=== PATIENT | male | born 1965 | race Caucasian/White ===

== ENCOUNTER 2018-04-12 16:12 | Inpatient (IN) | payer MEDICARE, OTHER ==
[~2018-04-12] VITALS: Ht 167.6 cm; Wt 64.0 kg
[~2018-04-12 16:12] MED LIST: AMLO10TA4 PO; ATOR20TA PO; CLON0.1T14 PO; HYDR-507 PO; HYDR50TA61 PO; LISI1TAB13 PO; QUET25TA3
[2018-04-12] MEDS ORDERED: [UNRECOGNIZED DRUG - REMARK] (16:35)
[2018-04-12] MEDS ORDERED: LORA-258 PO (16:35)
[2018-04-12] MEDS ORDERED: GENTAMICIN SULFATE INJ 80 MG in IV DEXTROSE 5% 100 ML IV ONE (17:15)
[2018-04-12] MEDS ORDERED: DEXAMETHASONE SOD PHOSPHATE 4 MG INJ IV ONE (17:15)
[2018-04-12] MEDS ORDERED: VANCOMYCIN IV 1,000 MG in IV DEXTROSE 5% 250 ML IV ONE (17:15)
[2018-04-12] MEDS ORDERED: IV NORMAL SALINE 1000 ML BAG IV ONE (17:15)
[2018-04-12] MEDS ORDERED: CLINDAMYCIN PHOSPHATE IV 600 MG in IV DEXTROSE 5% 100 ML IV ONE (17:15)
[2018-04-12] MEDS ORDERED: CLINDAMYCIN PHOSPHATE 600 MG/4 ML VIAL ONE (17:20)
[2018-04-12] MEDS ORDERED: GENTAMICIN SULFATE 80 MG/2 ML VIAL ONE (17:20)
[2018-04-12] MEDS ORDERED: DEXAMETHASONE SOD PHOSPHATE 10 MG INJ ONE (17:20)
[2018-04-12] MEDS ORDERED: VANCOMYCIN IV 200 ML ONE (17:20)
[2018-04-12 17:41] LABS: CREATININE 0.7 mg/dL (0.6-1.3)
--- NOTE | 2018-04-12 17:54 | NUR ---
Call placed to [facility], Dr. Mathews has been paged.
[2018-04-12 17:55] LABS: BILIRUBIN,DIRECT 0.1 mg/dL (0.0-0.2); BILIRUBIN,TOTAL 0.5 mg/dL (0.2-1.0); TOTAL PROTEIN, SERUM 7.6 g/dL (6.4-8.2)
[2018-04-12 17:57] LABS: BASOPHILS % (AUTO) 0.4 % (0.0-2.0); EOSINOPHILS % (AUTO) 0.3 % (0.0-7.0); HEMATOCRIT 47.4 % (36.7-47.1); HEMOGLOBIN 16.8 g/dL (12.5-16.3); LYMPHOCYTES # (AUTO) 1.1 K/uL (20.0-40.0); LYMPHOCYTES % (AUTO) 28.7 % (20.5-51.5); MEAN CORPUSCULAR HEMOGLOBIN 30.4 uug (23.8-33.4); MEAN CORPUSCULAR HGB CONC 35 g/dL (32.5-36.3); MEAN CORPUSCULAR VOLUME 86.1 fL (73.0-96.2); MONOCYTES # (AUTO) 0.5 K/uL (2.0-10.0); MONOCYTES % (AUTO) 12.2 % (0.0-11.0); NEUTROPHILS # (AUTO) 2.3 K/uL (1.8-8.9); NEUTROPHILS % (AUTO) 58.4 % (38.5-71.5); RED BLOOD CELL COUNT(AUTO) 5.51 MIL/uL (4.06-5.63)
[2018-04-12 17:58] LABS: PLATELET COUNT (AUTO) 142 K/uL (152-348)
[2018-04-12] MEDS ORDERED: NORMAL SALINE FLUSH 10 ML DISP.SYRIN ONE (18:16)
[2018-04-12] MEDS ORDERED: IV NORMAL SALINE 100 ML ONE (18:16)
[2018-04-12] MEDS ORDERED: IOHEXOL 300MG/ML 100 ML INFUS..BTL ONE (18:16)
[2018-04-12] MEDS ORDERED: SWABABLE VALVE TRANSFER SET EA MC ONE (18:16)
[2018-04-12] MEDS ORDERED: ONDANSETRON 4 MG/2 ML VIAL IV PRN (19:00)
[2018-04-12] MEDS ORDERED: Z GUARD REMEDY PASTE 57 GM TUBE TOP PRN (19:00)
[2018-04-12] MEDS ORDERED: MAGNESIUM HYDROXIDE 30 ML LIQUID UDC PO PRN (19:00)
[2018-04-12] MEDS ORDERED: MORPHINE SULFATE 4 MG/1 ML DISP.SYRIN IV PRN (19:00)
[2018-04-12] MEDS ORDERED: ACETAMINOPHEN 325 MG TABLET PO PRN (19:00)
--- NOTE | 2018-04-12 19:07 | NUR ---
REPORT GIVE TO JAHAIRA BOUCHER.
--- NOTE | 2018-04-12 19:13 | NUR ---
REPORT TAKEN FROM KLARISSA. ASSUMING PT CARE AT THIS TIME.
[2018-04-12 19:57] LABS: *BILIRUBIN,URIN NEGATIVE (NEGATIVE); *BLOOD, URINE NEGATIVE (NEGATIVE); *CLARITY,URINE CLEAR (CLEAR); *COLOR,URINE YELLOW (YELLOW); *KETONES,URINE NEGATIVE (NEGATIVE); *PROTEIN,URINE NEGATIVE (NEGATIVE); LEUKOCYTE ESTERASE ,URINE NEGATIVE (NEGATIVE); NITRITE, URINE NEGATIVE (NEGATIVE); PH,URINE 8.5 (5.0-8.0); UGLUCOSE NEGATIVE (NEGATIVE)
[2018-04-12 20:08] LABS: MUCUS,URINE FEW /LPF (0-FEW); WBC,URINE 0-3 /HPF (0-3)
--- NOTE | 2018-04-12 20:11 | NUR ---
PT AMBULATED TO AND FROM BATHROOM W/ STEADY GAIT. NO DISTRESS NOTED.
--- NOTE | 2018-04-12 20:39 | NUR ---
PT RESTING IN BED W/ EYES CLOSED. NO ACUTE DISTRESS NOTED. PENDING CT RESULTS.
[2018-04-12 23:00] VITALS: BP 120/88
--- NOTE | 2018-04-12 23:22 | NUR ---
REPORT GIVEN TO CITLALY BELTRAN.
--- NOTE | 2018-04-12 23:40 | NUR ---
RECEIVED PT FROM ER VIA WHEELCHAIR. PT IS AWAKE, ALERT, ORIENTEDX4. DX: CELLULITIS OF RIGHT JAW. ADMISSION PROCESS AND CARE PLAN INITIATED.NEW ADMISSION. BELONGING LIST DONE.MCC ASSESSMENT DONE. CALL LIGHT WITH REACH. BED ALARM ON AND IN LOW POSITION. SIDE [id number]. SAFETY AND COMFORT PROVIDED. WILL CONTINUE TO MONITOR.
--- NOTE | 2018-04-13 | NUR ---
Pt. admitted to [facility], under care of Dr. Mathews Belongs List completed
[2018-04-13] MEDS: IV NS 1000 ML 1,000 ML IV PRN ×2 (01:15→18:45)
--- NOTE | 2018-04-13 06:16 | NUR ---
Pt slept throughout the shift. Pt shows no signs of distress. Pt stable.Iv intact and patent.Safety and comfort provided. All needs are met. Will endorse to dayshift nurse.
[2018-04-13 06:29] VITALS: BP 122/80
[2018-04-13 06:40] LABS: CREATININE 0.7 mg/dL (0.6-1.3); MAGNESIUM 2.1 mg/dL (1.8-2.4); PHOSPHOROUS 3.4 mg/dL (2.5-4.9); POTASSIUM 4.5 mmol/L (3.5-5.1)
[2018-04-13] MEDS: HYDROCODONE/APAP 5-325MG TABLET PO PRN ×3 (07:05→20:07)
[2018-04-13 07:08] LABS: BASOPHILS % (AUTO) 0.3 % (0.0-2.0); HEMATOCRIT 48.5 % (36.7-47.1); HEMOGLOBIN 17.1 g/dL (12.5-16.3); LYMPHOCYTES # (AUTO) 1.1 K/uL (20.0-40.0); LYMPHOCYTES % (AUTO) 38.5 % (20.5-51.5); MEAN CORPUSCULAR HEMOGLOBIN 30.2 uug (23.8-33.4); MEAN CORPUSCULAR HGB CONC 35 g/dL (32.5-36.3); MEAN CORPUSCULAR VOLUME 85.9 fL (73.0-96.2); MONOCYTES # (AUTO) 0.2 K/uL (2.0-10.0); MONOCYTES % (AUTO) 5.8 % (0.0-11.0); NEUTROPHILS # (AUTO) 1.6 K/uL (1.8-8.9); NEUTROPHILS % (AUTO) 55.4 % (38.5-71.5); PLATELET COUNT (AUTO) 167 K/uL (152-348); RED BLOOD CELL COUNT(AUTO) 5.65 MIL/uL (4.06-5.63)
[2018-04-13 07:14] LABS: WHITE BLOOD COUNT (AUTO) 2.9 K/uL (3.6-10.2)
--- NOTE | 2018-04-13 07:30 | NUR ---
Received patient resting in bed, in no distress. IVF running, no infiltration noted. Patient's right mandibular/lower jaw/upper neck swelling noted. Sporadic rashes on upper body noted. Patient no c/o of itchy/pain/burning sensation, no SOB, stated no known allergies. Safety measures in place. Will continue to monitor.
[2018-04-13] MEDS: ENOXAPARIN SODIUM 40 MG/0.4 ML DISP.SYRIN SQ SCH (08:15)
[2018-04-13 08:45] LABS: BAND % (MANUAL) 7 % (0-10); LYMPHOCYTES % (MANUAL) 33 % (20-40); MONOCYTES % (MANUAL) 4 % (2-10); NEUTROPHILS % (MANUAL) 54 % (42-75)
[2018-04-13 08:48] LABS: REACTIVE LYMPHOCYTES 2 % (0-0)
--- NOTE | 2018-04-13 10:00 | NUR ---
Patient requested to see a psychiatrist. notified.
[2018-04-13] MEDS: VANCOMYCIN IV 1 G in PREMIXED 0 EACH IV SCH ×2 (10:59→20:06)
[2018-04-13 11:43] VITALS: BP 124/90
--- NOTE | 2018-04-13 14:50 | NUR ---
Clinical pharmacy note-Vancomycin dosing per pharmacy Subjective: To start Vancomycin dosing on this patient for suspected infection(head and neck abscess- ER note) Objective: BUN 7 Scr 0.7 WBC 2.9 Temp 98.5 Assessment/Plan: Patient had Vancomycin 1 gram in er last night at 1845. Will continue Vancomycin 1 gram IV every 10 hrs(first dose today at 11) and draw trough by 4th dose(not ordered yet) for expected trough around 16. Will monitor daily.
[2018-04-13 15:48] VITALS: BP 119/79
[2018-04-13] MEDS: LORAZEPAM 0.5 MG TABLET PO PRN (18:21)
--- NOTE | 2018-04-13 18:30 | NUR ---
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 Patient uses foul language (not directly to anyone), resist, gets very anxious, nervous and jerks his hands and legs during IV insertion and SQ med. Patient education/relaxation provided. Will continue to monitor.
--- NOTE | 2018-04-13 19:05 | NUR ---
RECEIVED PT AWAKE, ALERT, ORIENTEDX4. PT SHOWS NO SIGNS OF DISTRESS. PT IV INTACT AND PATENT. OBSERVED THAT PT HAS RASHES ALL OVER THE UPPER BODY WHICH IS NOT PRESENT WHEN I ADMITTED HIM.IT WAS ALSO ENDORSE BY DAYSHIFT NURSE THAT PT HAS RASHES. CALL LIGHT WITHIN REACH. BED ALARM ON AND IN LOW POSITION, SIDE RAILSX2. WILL CONTINUE TO MONITOR.
[2018-04-13 20:37] VITALS: BP 123/83
[2018-04-14] MEDS: HYDROCODONE/APAP 5-325MG TABLET PO PRN ×3 (04:10→23:31)
[2018-04-14] MEDS: LORAZEPAM 0.5 MG TABLET PO PRN ×3 (05:10→23:31)
[2018-04-14 05:24] VITALS: BP 127/88
[2018-04-14] MEDS: VANCOMYCIN IV 1 G in PREMIXED 0 EACH IV SCH ×3 (06:21→23:24)
--- NOTE | 2018-04-14 06:31 | NUR ---
PT SLEPT THROUGHOUT THE SHIFT. PT SHOWS NO SIGNS OF DISTRESS. IV INTACT AND PATENT. PRESCRIBED MEDICATION GIVEN AND PT TOLERATED IT WELL. PAIN MEDICATION GIVEN.CALL LIGHT WITHIN REACH , BED ALARM ON, SIDE RAILS X2UP AND IN LOW POSITION.ALL NEEDS ARE MET. SAFETY AND COMFORT PROVIDED. WILL ENDORSE TO DAYSHIFT NURSE.
--- NOTE | 2018-04-14 08:51 | NUR ---
Patient requested 2nd time to see a psychiatrist. MD available on the unit and was notified.
[2018-04-14] MEDS: ENOXAPARIN SODIUM 40 MG/0.4 ML DISP.SYRIN SQ SCH (09:35)
--- NOTE | 2018-04-14 09:45 | NUR ---
Sporadic rash on patient's upper body still visible, MD aware. Patient stated "better than yesterday". Patient no c/o of SOB. Will continue to monitor.
--- NOTE | 2018-04-14 11:00 | NUR ---
Clinical pharmacy note-Vancomycin dosing per pharmacy Subjective: To continue Vancomycin dosing on this patient for suspected infection(head and neck abscess- ER note) Objective: BUN 7 (04/13) Scr 0.7 (04/13) WBC 2.9 (04/13) Temp 97.4 Assessment/Plan: Will continue Vancomycin 1 gram IV every 10 hrs for now. Plan draw trough by 4th dose(ordered for today at 1630). Pharmacy shall review the level when available & adjust the dose if needed. Will monitor daily. Addendum: 04/14/18 at 1710 by JAMMIE HUGHES ADM VANCO TR LEVEL 7.9 WILL CHANGE VANCO DOSE TO VANCO 1 GM IVPB Q7H FOR PREDICATED VANCO TROUGH LEVEL OF 15.7 MCG/ML AT STEADY STATE. 1ST DOSE DUE TODAY AT 1700 PLAN TO RE-CHECK VANCO TROUGH LEVEL BEFORE 4TH DOSE (ORDERED ON 04/15 AT 1330). PHARMACY WILL REVIEW THE LEVEL & ADJUST THE DOSE IF NEEDED
[2018-04-14 11:19] VITALS: BP 116/84
[2018-04-14] MEDS: IV NS 1000 ML 1,000 ML IV PRN (11:25)
--- NOTE | 2018-04-14 11:34 | NUR ---
Patient still c/o of headache, c/o of nausea. PRN med administered as ordered. Will continue to assess and monitor.
--- NOTE | 2018-04-14 13:30 | NUR ---
Patient asleep, easily arousable. Medication for nausea and headache effective. Will continue to monitor.
[2018-04-14 15:33] VITALS: BP 112/84
[2018-04-14 16:50] VITALS: BP 111/73
--- NOTE | 2018-04-14 16:55 | NUR ---
Patient woke up c/o of headache and body ache, agitated, restless, stating "I feel hot". VS stable BP 111/73 HR 84 Temp 97.7, no SOB. Pain management as ordered. Will continue to monitor.
--- NOTE | 2018-04-14 17:55 | NUR ---
Patient slept intermittently, in no distress, no SOB, no c/o of chest pain, VS stable, afebrile. Right lower jaw/upper neck area with swelling/redness slight improvement noted compared with yesterday's assessment. Patient c/o of headache and body ache, pain management as ordered. IVF running, no infiltration noted. Antibiotic administered as ordered, no s/s of adverse reaction noted. Safety measures in place. Will continue to monitor.
--- NOTE | 2018-04-14 19:25 | NUR ---
PT RECEIVED IN BED, ASLEEP. WAKES TO NAME. A/OX3. ABLE TO MAKE NEEDS KNOWN. V/S STABLE. IN NO ACUTE DISTRESS. PT C/O OF RIGHT NECK PAIN 07/05, COMFORT MEASURES IMPLEMENTED. HEAD REPOSITIONED, FAN PROVIDED, AND ICE PACK APPLIED. REFUSES PAIN MEDICATION AT THIS TIME. IVF INFUSING. ON RA, TOLERATING WELL. AFEBRILE. SAFETY MEASURES IMPLEMENTED. CALL LIGHT WITHIN REACH.
[2018-04-14 20:05] VITALS: BP 132/96
--- NOTE | 2018-04-14 23:35 | NUR ---
PT C/O OF HEADACHE AND RIGHT EYE PAIN 09/04. [facility] FOR PAIN MANAGEMENT AND ICE PACK PLACED ON FOREHEAD. PT REQUEST ATIVAN FOR C/O ANXIETY. ADMIN PER MD ORDER. WILL CONT TO MONITOR FOR ACUTE CHANGES. STABLE AT THIS TIME.
[2018-04-15] MEDS: IV NS 1000 ML 1,000 ML IV PRN (05:34)
[2018-04-15 06:00] VITALS: BP 123/73
[2018-04-15] MEDS: VANCOMYCIN IV 1 G in PREMIXED 0 EACH IV SCH (06:00)
--- NOTE | 2018-04-15 06:00 | NUR ---
END OF SHIFT NOTES. PT SLEPT WELL THROUGHOUT SHIFT. IV ABX INFUSED. IV LINE REMAINS INTACT AND PATENT, IVF INFUSING. RIGHT NECK PAIN MANAGED. ICE PACK IN PLACE. COMPLIANT WITH ALL CARE. CONT TO REFUSE GOWN PLACEMENT, LAYS IN BED COVERED IN BLANKET. ALL NEEDS ATTENDED. SAFETY MAINTAINED. CALL LIGHT REMAINS WITHIN REACH.
--- NOTE | 2018-04-15 07:30 | NUR ---
PT RECEIVED IN BED, ASLEEP. WAKES TO NAME. A/OX3. ABLE TO MAKE NEEDS KNOWN. V/S STABLE. IN NO ACUTE DISTRESS.IVF INFUSING. ON RA, TOLERATING WELL. SAFETY MEASURES IMPLEMENTED. CALL LIGHT WITHIN REACH.
[2018-04-15] MEDS: HYDROCODONE/APAP 5-325MG TABLET PO PRN (08:10)
[2018-04-15] MEDS: ENOXAPARIN SODIUM 40 MG/0.4 ML DISP.SYRIN SQ SCH (08:13)
[2018-04-15] MEDS ORDERED: CLIN300C11 PO (10:33)
[2018-04-15 11:02] VITALS: BP 118/72
--- NOTE | 2018-04-15 11:41 | NUR ---
D/C [place] PER MD ORDERS D/C INSTRUCTION GIVEN TO THE PT VIA PHARMACY .
--- NOTE | 2018-04-15 12:30 | NUR ---
PT REFUSED TO TAKE HIS WOUND PICTURE MD AND CHARGE NURSE MADE AWARE
--- NOTE | 2018-04-15 17:16 | NUR ---
d/c instruction given to the pt,pt said he will follow up with his pcp .pt left the facility via private car in stable condition
== END 2018-04-15 17:20 | disposition home or self-care (01) | DRG 603 ==
LOC: ER 16:12 → MED 23:14
PROVIDERS: ADMIT Internal Medicine; ATTEND Internal Medicine
DX: L03.221 Cellulitis of neck (principal); E78.5 Hyperlipidemia, unspecified; F10.10 Alcohol abuse, uncomplicated; L02.11 Cutaneous abscess of neck; F14.10 Cocaine abuse, uncomplicated; F15.10 Other stimulant abuse, uncomplicated; Y90.9 Presence of alcohol in blood, level not specified; F17.210 Nicotine dependence, cigarettes, uncomplicated; F32.9 Major depressive disorder, single episode, unspecified; F41.9 Anxiety disorder, unspecified; K05.10 Chronic gingivitis, plaque induced; M50.30 Other cervical disc degeneration, unspecified cervical region; Z79.899 Other long term (current) drug therapy; I10 Essential (primary) hypertension
CPT/HCPCS: 36415; 70030-TC; 70491; 71045; 83605; 83735; 84100; 85025; 85730; 87040; 87086; 93005; A4663; J1100; J1580; J1650; J2405; J3370; J3490; J7030; Q9967